=== PATIENT | male | born 1940 | race Caucasian/White ===

== ENCOUNTER 2020-08-12 16:06 | Day surgery (SDC) | payer MEDICARE ==
[~2020-08-12] VITALS: Ht 172.7 cm; Wt 86.0 kg
[~2020-08-12 16:06] MED LIST: LIDOcaine 1% W/epiNEPHrine 1:100,000 20ml vial ONE; fentaNYL/PF 50MCG/1 ML 2ML syringe ONE; midazolam 2 mg/2 ml injection ONE; proCHLORperazine 10 MG/2 ml inj ONE
[2020-08-12] MEDS ORDERED: BENA20TA10 PO (16:47)
[2020-08-12] MEDS ORDERED: FLUT1BLS3 INH (16:47)
[2020-08-12] MEDS ORDERED: ALLO100T15 PO (16:47)
[2020-08-12] MEDS ORDERED: BUPR200T PO (16:47)
[2020-08-12] MEDS ORDERED: ceFAZolin 2gm in dextrose, iso 50 ML IV ONE (16:50)
[2020-08-12] MEDS ORDERED: vancomycin/NS 1 GM ADD-VANTAGE 250 ML X 1 DOSE IV ONE (16:50)
[2020-08-12 16:57] VITALS: BP 166/57
[2020-08-12 17:11] LABS: BASOPHILS # (AUTO) 0.1 X10'3 (0-0.2); BASOPHILS % (AUTO) 0.7 % (0-1); EOSINOPHILS # (AUTO) 0.1 X10'3 (0-0.9); EOSINOPHILS % (AUTO) 1.7 % (0-6); HEMATOCRIT 41.2 % (42.0-52.0); HEMOGLOBIN 13.7 g/dl (14.0-17.9); LYMPHOCYTES # (AUTO) 1.5 X10'3 (1.1-4.8); LYMPHOCYTES % (AUTO) 16.9 % (21-51); MEAN CORPUSCULAR HEMOGLOBIN 33.6 PG (27.0-31.0); MEAN CORPUSCULAR HGB CONC 33.2 g/dL (33.0-36.5); MEAN CORPUSCULAR VOLUME 101.3 FL (78-98); MEAN PLATELET VOLUME 9.2 FL (7.4-10.4); MONOCYTES # (AUTO) 1.1 X10'3 (0-0.9); MONOCYTES % (AUTO) 13.1 % (2-12); NEUTROPHILS # (AUTO) 5.9 X10'3 (1.8-7.7); NEUTROPHILS % (AUTO) 67.6 % (42-75); PLATELET COUNT 190 X10'3 (140-440); RED BLOOD COUNT 4.07 X10'6 (4.70-6.10); RED CELL DISTRIBUTION WIDTH 13.6 % (11.5-14.5); WHITE BLOOD COUNT 8.7 X10'3 (4.5-11.0)
[2020-08-12 17:15] LABS: ALBUMIN 3.2 G/DL (3.4-5.0); ANION GAP 10 (8-16); BLOOD UREA NITROGEN 24 MG/DL (7-18); BUN/CREATININE RATIO 21.2 (5.4-32.0); CALCIUM 9.1 MG/DL (8.5-10.1); CHLORIDE 105 MMOL/L (99-107); CREATININE 1.13 MG/DL (0.60-1.10); GLUCOSE 91 MG/DL (70-104); POTASSIUM 3.9 MMOL/L (3.5-5.1); SODIUM 141 MMOL/L (135-145); TOTAL CARBON DIOXIDE 25.8 MMOL/L (24-32); eGFR 62 ML/MIN
[2020-08-12] MEDS ORDERED: fentaNYL/PF 50MCG/1 ML 2ML syringe ONE (17:17)
[2020-08-12] MEDS ORDERED: midazolam 2 mg/2 ml injection ONE (17:17)
[2020-08-12 18:15] VITALS: BP 137/55
[2020-08-12 18:30] VITALS: BP 137/53
[2020-08-12 18:45] VITALS: BP 140/45
[2020-08-12 19:00] VITALS: BP 132/60
== END 2020-08-12 19:30 | disposition home or self-care (01) ==
LOC: SSTAY O 16:06
PROVIDERS: ATTEND Internal Medicine Cardiovascular Disease
DX: R55 Syncope and collapse (principal); I44.1 Atrioventricular block, second degree; I10 Essential (primary) hypertension; J45.909 Unspecified asthma, uncomplicated; Z98.890 Other specified postprocedural states; Z79.899 Other long term (current) drug therapy; Z80.42 Family history of malignant neoplasm of prostate; Z80.0 Family history of malignant neoplasm of digestive organs; Z88.2 Allergy status to sulfonamides
CPT/HCPCS: 33208; 36415; 71045; 80048; 85025; 99152; 99153; C1785; C1898; J0780; J2250; J3010; A4565; A4620; A6449